=== PATIENT | male | born 1955 | race Caucasian/White ===

== ENCOUNTER → 2017-10-27 | Outpatient (CLI) | payer BC | END | disposition home or self-care (01) | LOC: CDC 08:29 | DX: Z01.810 Encounter for preprocedural cardiovascular examination (principal); M75.111 Incomplete rotator cuff tear or rupture of right shoulder, not specified as traumatic; M75.41 Impingement syndrome of right shoulder; M25.511 Pain in right shoulder; S43.431D Superior glenoid labrum lesion of right shoulder, subsequent encounter; M19.011 Primary osteoarthritis, right shoulder; R94.31 Abnormal electrocardiogram [ECG] [EKG] | CPT/HCPCS: 93000 ==

== ENCOUNTER 2017-11-12 10:21 | Day surgery (SDC) | payer BC ==
[~2017-11-12] VITALS: Ht 188 cm; Wt 90.7 kg
[~2017-11-12 10:21] MED LIST: ALEVE220 MG PO; LIPITOR40 MG PO; ZESTRIL40 MG PO
[2017-11-12 10:57] VITALS: BP 161/90
[2017-11-12 17:42] VITALS: BP 145/71
[2017-11-12 18:20] VITALS: BP 136/76
== END 2017-11-12 18:27 | disposition home or self-care (01) ==
LOC: SDC 10:21
DX: M75.111 Incomplete rotator cuff tear or rupture of right shoulder, not specified as traumatic (principal)
CPT/HCPCS: J0131; J0171; J0690; J1100; J1170; J1885; J2250; J2405; J2795; J3010